=== PATIENT | female | born 1935 | race Caucasian/White ===

== ENCOUNTER 2017-04-15 15:47 | Emergency (ER) | payer MEDICARE, OTHER ==
[~2017-04-15] VITALS: Ht 152.4 cm; Wt 68.0 kg
[~2017-04-15 15:47] MED LIST: ACCUNEB0.63 MG/3 IH; ADVAIR 250-501 EACH INH; ADVIL200 MG PO; ALBUTEROL2.5 MG/3 M INH; ASPIRIN EC81 MG PO; BACLOFEN10 MG PO; CALCIUM 500 +1 EAC4 PO; CARVEDILOL3.125 MG PO; CELEXA10 MG PO; COLACE100 MG PO; DURAGESIC1 EACH TD; GLIPIZIDE XL5 MG PO; GLIPIZIDE5 MG PO; HYDRALAZINE HCL10 MG PO; HYDROCODON-ACE1 EA11 PO; KEFLEX500 MG PO; LANTUS SOL100 UNIT/1 SQ; LASIX20 MG PO; LEVOTHYROXINE75 MCG PO; LISINOPRIL20 MG PO; LISINOPRIL5 MG PO; MULTIVITAMINS1 EAC7 PO; NORCO 10-325 T1 EACH PO; OSTEO BI-FLEX1 EAC1 PO; RANITIDINE HCL150 MG PO; SIMVASTATIN20 MG PO; SPIRIVA18 MCG INH; ZOLOFT25 MG PO; ZOLOFT50 MG PO
--- NOTE | 2017-04-16 21:23 | EKG ---
[facility] [address] [facility] [place] [address] Signed Normal sinus rhythm Low voltage QRS Possible Anterolateral infarct , age undetermined Abnormal ECG No previous ECGs available Confirmed by MONICA GUERRERO MD ([id number]) on 04/16/2017 9:23:07 PM Electronically Signed By: MONICA GUERRERO MD 04/16/[id number] PATIENT NAME: RAMA RODRÍGUEZ DONNIE Electrocardiogram DATE OF : 33 PHYSICIAN: MONICA GUERRERO MD REPORT #: [id number] REPORT IS CONFIDENTIAL AND NOT TO BE RELEASED WITHOUT AUTHORIZATION
== END 2017-04-15 18:30 | disposition home or self-care (01) ==
LOC: ED 15:47
PROC: 0T9B70Z Drainage of Bladder with Drainage Device, Via Natural or Artificial Opening (ICD-10-PCS; principal; 2017-04-15)
DX: E86.0 Dehydration (principal); J44.9 Chronic obstructive pulmonary disease, unspecified; I10 Essential (primary) hypertension; E10.9 Type 1 diabetes mellitus without complications; F32.9 Major depressive disorder, single episode, unspecified; F17.200 Nicotine dependence, unspecified, uncomplicated; Z90.49 Acquired absence of other specified parts of digestive tract; Z90.89 Acquired absence of other organs; Z88.1 Allergy status to other antibiotic agents; Z88.8 Allergy status to other drugs, medicaments and biological substances; Z79.899 Other long term (current) drug therapy; Z79.82 Long term (current) use of aspirin
CPT/HCPCS: 51701; 71045; 80053; 81001; 84484; 85025; 87502; 93005; 93010; 96360; 99284; G0480; J7030

== ENCOUNTER 2019-02-19 19:51 | Inpatient (IN) | payer MEDICARE, OTHER ==
[~2019-02-19] VITALS: Ht 152.4 cm; Wt 63.2 kg
[~2019-02-19 19:51] MED LIST changes: +AMOX TR-K250 MG/5 M PO; +CEPHALEXIN500 M1 PO; +CITRATE OF MAG296 ML PO; +DULCOLAX10 MG PR; +FLEET ENEMA133 ML PR; +GABAPENTIN100 MG PO; +IPRAT-ALBUT 0.5-3 ML INH; +LANTUS100 UNITS/ SUB-Q; +LEVOTHYROXINE88 MCG PO; +LIDOCAINE-PRIL1 EACH TOP; +LIPITOR20 MG PO; +LISINOPRIL40 MG PO; +MAGNEBIND 4001 EACH PO; +METOPROLOL TART50 MG PO; +MILK OF MA400 MG/5 M PO; +NEURONTIN100 MG PO; +NIFEDIPINE ER30 MG PO; +NORCO 5-325 TA1 EACH PO; +NOVOLOG100 UNIT/2 SUB-Q; +PREDNISONE20 MG PO; +SERTRALINE HCL50 MG PO; +TESSALON PERLE100 MG PO
--- NOTE | 2019-02-20 01:40 | NUR ---
PATIENT ARRIVED TO THE FLOOR VIA STRETCHER. PATIENT WAS TRASFERRED FROM STRETCHER TO BED BY STAFF. PATIENTS ADMISSION COMPLETED. ASSESMENT COMPLETED. PATIENT IS CONFUSED AT TIMES. PATIENT HOWEVER ANSWERES QUESTIONS APPROPRIATELY AND IS SLOW TO RESPOND TO QUESTIONING. PATIENT IS ON RA. PATIENT DENIES ANY PAIN. PATIENT IS A FEEDER. PATIENT FED CHOCOLATE PUDDING AND TOOK SIPS OF WATER. PATIENT DENIES ANY NEEDS. PATIENTS DAUGHTER PRESENT DURING ADMISSION. NO FURTHER NEEDS NOTED. CALL LIGHT IN REACH.
--- NOTE | 2019-02-20 02:52 | NUR ---
PATIENT IS RESTING IN BED WITH EYES CLOSED, RR 17 . CALL LIGHT IN REACH.
--- NOTE | 2019-02-20 05:05 | NUR ---
PATIENT REPOSITIONED. PATIENT DENIES ANY PAIN. NEW IV STARTED. PATIENT DENIES ANY NEEDS. SIPS OF WATER PROVIDED. CALL LIGHT IN REACH.
--- NOTE | 2019-02-20 05:06 | NUR ---
PATIENT HAS RESTED WLL SINCE ARRIVING TO THE FLOOR. PATIENT IS ON A REGULAR DIET WITH MINCED/MOIST FOOD. PATIENT HAS TOLERATED DIET WELL AND NO NAUSEA NOTED. PATIENT REQUIRES ASSISTANCE WITH EATING AND DRINKING. PATIENT IS INCONTINENT AT BASELINE ATTEND IN PLACE. PATIENT IS BEDBOUND AT BASELINE. PATIENT HAS ALLEVYN IN COCYX PLACED BY ED. PATIENT TURNED Q2. PATIENT IS OREINTED TO SELF. PATIENT HAS IV INFUSING PER ORDER.
--- NOTE | 2019-02-20 05:30 | NUR ---
PATIENTS VITALS TAKEN AND RECORDED. INTAKE AND OUPUT RECORDED. PATIENTS ATTEND WAS SATURATED WITH URINE. PATIENTS ATTEND CHANGED AND PEGGY CARE COMPLETED. PATIENT REPOSITIONED. PATIENT DENIES ANY PAIN. DRINKS OF WATER PROVIDED. NO FURTHER NEEDS NOTED. CALL LIGHT IN REACH.
--- NOTE | 2019-02-20 07:27 | NUR ---
REPORT RECEIVED FROM UTILITY HELICOPTER REPAIRER RN. PT LYING IN BED AWAKE. LR AT 125 INFUSING. VISIBLE FROM NURSING STATION. CALL LIGHT IN REACH. CRISTINA MCCALL.
--- NOTE | 2019-02-20 08:45 | NUR ---
URINARY OREILLY PLACED PER MD ORDER. PT SOMULENT. WAKES TO PAINFUL STIMULI. BUT ABLE TO ANSWER YES/NO QUESTIONS. 75ML FOUL SMELLING URINE PRODUCED. UA SENT TO LAB. PT CLEANED UP AND REPOSITIONED.
--- NOTE | 2019-02-20 09:00 | NUR ---
DR LOZOYA NOTIFIED OF URINE OUTPUT OF 75ML WITH OREILLY INSERTION. VERBAL ORDER FOR LR BOLUS TO RUN AT 500ML/HR STARTED.
[2019-02-20] MEDS ORDERED: NITROFURANTOIN100 M1 PO (09:56)
[2019-02-20] MEDS ORDERED: LIPITOR80 MG PO (10:00)
[2019-02-20] MEDS ORDERED: NOVOLOG100 UNIT/2 SUB-Q (10:04)
[2019-02-20] MEDS ORDERED: ZESTRIL20 MG PO (10:08)
--- NOTE | 2019-02-20 11:04 | NUR ---
OCCUPATIONAL THERAPY AT BEDSIDE.
--- NOTE | 2019-02-20 11:41 | NUR ---
PATIENT SITTING UP IN BED. HIGH B/P AND LOW OUTPUT, RN NOTIFIED. CALL LIGHT IN REACH. NO FURTHER NEEDS AT THIS TIME.
--- NOTE | 2019-02-20 12:00 | NUR ---
DR LOZOYA NOTIFIED OF LOW URINE OUTPUT. NEW ORDERS RECIEVED.
[2019-02-20] MEDS ORDERED: ADVAIR 250-501 EACH INH (12:10)
--- NOTE | 2019-02-20 13:46 | NUR ---
patient sitting in chair. patient found to have a large amt emesis. patient cleaned up, zofran given, primary nurse alerted
--- NOTE | 2019-02-20 14:42 | NUR ---
PATIENT SITTING UP IN CHAIR. O2 LOW, RN NOTIFED. CALL LIGHT IN REACH. NO FURTHER NEEDS AT THIS TIME.
--- NOTE | 2019-02-20 14:50 | NUR ---
2L NC PLACED D/T O2 SATURATION OF 85% ON RA. DR LOZOYA NOTIFIED. CHEST XRAY ORDERED.
--- NOTE | 2019-02-20 15:04 | NUR ---
IMAGING IN ROOM FOR CHEST XRAY.
--- NOTE | 2019-02-20 15:31 | NUR ---
NUTRITION CONSULT RECEIVED. PATIENT HAS PRESSURE ULCER TO COCCYX AND HAS SEVERE DEMENTIA. LIVES WITH FAMILY. SHE NEEDS TO BE FED AND HAS HAD A POOR APPETITE. DIET WAS JUST CHANGED TO FULL LIQUID. NURSING REPORTS SPEECH THERAPY IS TO EVAL HER SWALLOWING. SHE CAME IN ON A MINCED & MOIST DIET, BUT DIDN'T TOLERATE THAT WELL TODAY. BMI IS 27.14. SHE CAN HAVE ENSURE ON A FULL LIQUID DIET. WILL CONTINUE TO MONITOR.
--- NOTE | 2019-02-20 15:43 | NUR ---
IV FLUIDS INCREASED TO 200ML/HR PER MD ORDER.
--- NOTE | 2019-02-20 15:52 | NUR ---
MED REC COMPLETE
--- NOTE | 2019-02-20 16:16 | NUR ---
In for CM initial assessment. Nurses are feeding patient. She is able to answer questions, but has difficulty and is unable to remember if she uses any DME. She states she lives with her daughter who does all her care. Would like to return home when discharged.
--- NOTE | 2019-02-20 17:40 | NUR ---
FLUIDS INCREASED TO 250ML/HR
--- NOTE | 2019-02-20 18:57 | NUR ---
PATIENT IN BED RESTING WITH EYES CLOSED. PATIENT ONLY TOOK A FEW SIPS OF ENSURE. B/P HIGH, RECHECKED, AND RN NOTIFIED. CALL LIGHT IN REACH. NO FURTHER NEEDS AT THIS TIME.
--- NOTE | 2019-02-20 19:02 | NUR ---
PT WITH ELEVATED BLOOD PRESSURE. DR LOZOYA NOTIFIED. NO NEW ORDERS.
--- NOTE | 2019-02-20 19:04 | EKG ---
[facility] [address] [facility] [place] [address] Signed Normal sinus rhythm Poor data quality Inferior infarct , age undetermined Anteroseptal infarct (cited on or before 15-APR-2017) Abnormal ECG When compared with ECG of 26-JAN-2018 19:23, Inferior infarct is now present Confirmed by SALLY LOZOYA DO ([id number]) on 02/20/2019 7:04:07 PM Electronically Signed By: SALLY LOZOYA DO 02/20/19 1904 PATIENT NAME: RAMA RODRÍGUEZ DONNIE Electrocardiogram DATE OF : 33 PHYSICIAN: SALLY LOZOYA DO REPORT #: [id number] REPORT IS CONFIDENTIAL AND NOT TO BE RELEASED WITHOUT AUTHORIZATION
--- NOTE | 2019-02-20 19:54 | NUR ---
REPORT RECEIVED FROM DAY SHIFT RN. PT LYING IN BED WITH EYES CLOSED. IVF INFUSING. AFIA PATENT. CALL LIGHT IN REACH.
--- NOTE | 2019-02-20 21:00 | NUR ---
PT NOTED TO HAVE ELEVATED BP. NEW ORDERS RECEIVED FROM DR. LOZOYA.
--- NOTE | 2019-02-20 21:50 | NUR ---
ASSESSMENT COMPLETE. PM MEDS GIVEN WITH PUDDING AND SIPS OF H20. PT HAVING DIFFICULTY SWALLOWING PILLS BUT APPEARS TO DO WELL WITH H2O AND PUDDING. NO CHOKING OR ASPIRATION NOTED. O2 2L/NC IN PLACE, SATS 99%. OREILLY PATENT. REPOSITIONED PT WITH PILLOWS. CALL LIGHT WITHIN REACH.
--- NOTE | 2019-02-20 23:05 | NUR ---
NEW BAG OF LR NOW INFUSING, PT IS RESTING WITH EYES CLOSED. RR IS EVEN AND NONLABORED. CALL LIGHT IS CLOSE.
--- NOTE | 2019-02-20 23:23 | NUR ---
PATIENT IS RESTING IN BED. PATIENTS BP RECHECKED. PATIENT IS RESTING PEACFULLY IN BED RR 17. PATIENT IS ON 1L VIA NC. PATIENT DENIES ANY SOB OR PAIN. NO NEEDS NOTED. CALL LIGHT IN REACH.
--- NOTE | 2019-02-21 02:02 | NUR ---
SPOT CHECK SPO2 99% ON 0.5 L/NC. RR EVEN AND UNLABORED.
--- NOTE | 2019-02-21 05:26 | NUR ---
PT IN BED, RESTING WITH EYES CLOSED. REPOSITIONED WITH PILLOWS. IVF INFUSING. VS AND I/O'S COMPLETE. OREILLY PATENT. SIPS OF WATER GIVEN, NO APPARENT ASPIRATION. CALL LIGHT WITHIN REACH.
--- NOTE | 2019-02-21 05:31 | NUR ---
PT RESTED WELL. MOSTLY NON-VERBAL. ASPIRATION PRECAUTIONS. FULL LIQ DIET. O2 2L/NC. REPOSITION Q2. OREILLY. IVF AND IV ABX. BS CHECK AND SS INSULIN. ELEVATED BP, PRN MEDS WITH PARAMETERS ORDERED.
--- NOTE | 2019-02-21 07:44 | NUR ---
PT RESTING SUPINE IN BED EYES CLOSED AND RESPIRATIONS EVEN AND UNLABORED. PT APPEARS TO BE SLEEPING COMFORTABLY. PT DROWSY BUT AROUSES TO VOICE. CALL LIGHT AND H2O IN REACH. PT ASSESSMENT COMPLETED, AM MEDS ADMINISTERED.
--- NOTE | 2019-02-21 10:05 | NUR ---
PT RESTING SUPINE IN BED WITH LLE ELEVATED ON PILLOWS, [address] CALL LIGHT AND H2O IN REACH. NO NEEDS OR CONCERNS VOICED.
--- NOTE | 2019-02-21 13:24 | NUR ---
Pt. resting in bed sleeping. Not awakened. Requested staff notify me when pt's daughter returns.
--- NOTE | 2019-02-21 14:41 | NUR ---
PT TRANSFERED TO BED WITH 2PERSON HEAVY ASSIST. PT STATES SHE IS COMFORTABLE RESTING IN SEMIFOWELRS POSITION IN BED. CALL LIGHT AND H2O IN REACH. PT DENIES NEEDS OR CONCERNS.
--- NOTE | 2019-02-21 16:00 | NUR ---
BP ELEVATED SO PRN HYDRALAZINE WAS ADMINISTERED ORDERED. NOTIFIED.
--- NOTE | 2019-02-21 19:05 | NUR ---
ROUNDED CHARGE. PATIENT IS RESTING IN BED. PATIENT IS SMILING. PATIENT DENIES ANY COMMENTS, QUESTIONS OR CONCERNS. DAUGHTER IS PRESENT IN THE ROOM. DAUGHTER DENIES ANY COMMENTS, QUESTIONS OR CONCERNS. CALL LIGHT IN REACH.
--- NOTE | 2019-02-21 19:34 | NUR ---
IN ROOM FOR REPORT, PT IS AWAKE IN BED. SHE DENIES NEEDS AT THIS TIME. CALL LIGHT IS WITHIN REACH.
--- NOTE | 2019-02-21 22:00 | NUR ---
IN ROOM TO ADMINISTER MEDICATIONS AND ASSESS PT. SHE IS PLEASANTLY CONFUSED EVEN WITH NECK PAIN. SHE WAS UNCOMFORTABLE WHEN REPOSITIONED IN BED. ADMINISTERED OXYCODONE. PT DENIES NEED AND CALL LIGHT IS WITHIN REACH. IV IS INFUSING FINE.
--- NOTE | 2019-02-21 23:20 | NUR ---
PT IS RESTING IN BED WITH EYES CLOSED, RR IS EVEN AND NONLABORED. CALL LIGHT IS CLOSE AND IV IS INFUSING FINE.
--- NOTE | 2019-02-22 01:47 | NUR ---
PT IS RESTING WITH EYES CLOSED, RR IS EVEN AND NONLABORED. CALL LIGHT IS CLOSE AND IV IS INFUSING FINE.
--- NOTE | 2019-02-22 01:49 | NUR ---
REPOSITIONED PT IN BED WITH HELP FROM KATIA WILKINS, SHE DENIES NEEDS AT THIS TIME. CALL LIGHT IS CLOSE.
--- NOTE | 2019-02-22 03:13 | NUR ---
PT IS RESTING WITH EYES CLOSED, RR IS EVEN AND NONLABORED. CALL LIGHT IS CLOSE AND IV IS INFUSING FINE.
--- NOTE | 2019-02-22 04:08 | NUR ---
PT IS AWAKE IN BED, IN ROOM TO HANG NEW BAG OF IV FLUID. PT DENIES NEEDS AT THIS TIME. CALL LIGHT IS CLOSE.
--- NOTE | 2019-02-22 05:57 | NUR ---
IN ROOM TO ADMINISTER THYROID MED. REPOSITIONED PT AND SHE DENIES FURTHER NEEDS. CALL LIGHT IS CLOSE.
--- NOTE | 2019-02-22 09:20 | NUR ---
PT IS ALERT THIS MORNING, SMILING AND INTERACTIVE, ATE WELL FOR BREAKFAST AND TAKING FLUIDS MUCH BETTER, SPOKE WITH DR LOZOYA AND WILL DC IV FLUIDS AND ENCOURAGE PO INTAKE. OREILLY PATENT WITH YELLOW URINE, REPOSITIONED FOR COMFORT, KOMAL CONNOR CDI TO COCCYX.
--- NOTE | 2019-02-22 10:11 | NUR ---
Got lathane sat up in the feeding position, patient in a very talkative mood, at 50% of her breakfast , face wased and fresh water given, repodition Patient. patient is resting call light in reach.
--- NOTE | 2019-02-22 11:00 | NUR ---
TWO PERSON ASSIST UP TO RECLINER, PT SMILING, TRIES TO FOLLOW INSTRUCTION, ENC PT TO BE AWAKE DURING DAY.
--- NOTE | 2019-02-22 13:56 | NUR ---
CLAUDETTE LEVIN REQUESTED I LET PT SLEEP FOR THE MOMENT. WILL CHECK BACK LATER
--- NOTE | 2019-02-22 17:47 | NUR ---
IVF RESTARTED AFTER TALKING WITH DR LOZOYA, URINE OUTPUT MINIMUM, TAKING PO FLUIDS OFFERED BUT COUGHING AND CONGESTION INCREASES, USING ASPIRATION PRECAUTION AND THICKENED LIQUIDS.
--- NOTE | 2019-02-22 18:50 | NUR ---
PT WITH INCREASED RESP AND WORK OF BREATHING, RESP-40, O2 INC. TO 4L/NC, REQUESTED RT TO COME TO ROOM FOR TREATMENT, CALL PLACED TO DR LOZOYA AND RECIEVED ORDER FOR CHEST XRAY.
--- NOTE | 2019-02-22 19:04 | NUR ---
RECEIVED REPORT FROM CLAUDETTE LEVIN. pt HAS LABORED BREATHING, VERBAL ORDER FROM MD TO GIVE 0.5MG OF MORPHINE. GIVEN (SEE MAR). REDRESSED IV WILL MONITOR SITE. VISITOR AT BEDSIDE. CALL LIGHT WITHIN REACH. CURTAIN OPEN TO THE NURSES STATION. ON HIGH FLOW O2.
--- NOTE | 2019-02-22 19:54 | NUR ---
MD IN ROOM. WILL TITRATE O2 DOWN TOLERATED. NO FURTHER ORDERS AT THIS TIME.
--- NOTE | 2019-02-22 23:57 | NUR ---
DAUGHTER REQUESTED BREATHING TREATMENT FOR pt. THIS RN IN TO ASSESS pt. pt HAS LABORED BREATHING USING ACCESSORY MUSCLES, RATE = 28. DISCUSSED WITH RT, PRN MORPHINE GIVEN FOR SOB (SEE MAR). pt's DAUGHTER INSISTED THAT pt HAVE A BREATHING TREATMENT, RT INFORMED.
--- NOTE | 2019-02-23 00:30 | NUR ---
DAUGHTER INFORMED THIS RN THAT pt HAD "FINISHED A SPRITE" EDUCATED DAUGHTER ON ASPIRATIONS PRECAUTIONS AND THAT pt SHOULD ONLY HAVE A SIP FOR COMFORT. DAUGHTER STATED "THE DOCTOR SAID I COULD" RESTATED THAT pt SHOULD ONLY HAVE A FEW SIPS FOR COMFORT.
--- NOTE | 2019-02-23 01:41 | NUR ---
ROUNDED ON pt. RESTING IN BED. WORK OF BREATHING DECREASED FROM LAST ASSESSMENT. MORE AIR MOVEMENT IN UPPER LOBES. DAUGHTER AT BEDSIDE. CALL LIGHT WITHIN REACH.
--- NOTE | 2019-02-23 03:50 | NUR ---
IV SITE LEAKING. NEW IV STARTED, pt TOLERATED WELL. ASSESSMENT DONE. pt AWAKE, SLOW TO RESPOND. EXPIRATORY WHEEZE HEARD IN BILAT UPPER LOBES. DAUGHTER AT BEDSIDE. CALL LIGHT WITHIN REACH.
--- NOTE | 2019-02-23 05:06 | NUR ---
pt RESTED ON AND OFF DURING SHIFT. DAUGHTER AT BEDSIDE ALL SHIFT. ACCU CHECK WITH SS INSULIN. IVF INFUSING, IV ABX. OREILLY. HIGH ASPIRATION RISK, pt NPO WITH SIPS FOR COMFORT, DAUGHTER AWARE OF RESTRICTION, GAVE pt FULL CAN OF SODA. pt MOSTLY NON VERBAL. DOES NOT USE CALL LIGHT.
--- NOTE | 2019-02-23 06:47 | NUR ---
NEW IV STARTED BY CLAUDETTE SALMON. NEW BAG OF IVF INFUSING. pt HAS LABORED BREATHING, O2 VIA NC. O2 SAT 99%. DAUGHTER AT BEDSIDE.
--- NOTE | 2019-02-23 07:43 | NUR ---
0710: REPORT RECIEVED FROM TANYA WILKINS. PT SLEEPING, SAT 100% WITH A RR OF 30 AND PT SLEEPING. CALL ROSA WITHIN REACH AND A FAMILY MEMBER IS SLEEPING IN THE ROOM.
--- NOTE | 2019-02-23 08:42 | NUR ---
PT VERY DROWSY AT THIS TIME AND IS UNABLE TO SAFELY TAKE ANY ORAL MEDICATIONS. HER DAUGHTER WHO IS PRESENT WAS INSTRUCTED TO NOT GIVE ANYTHING TO THE PT ORALY AND SHE STATES "WHO'S GOING TO DO IT WHEN SHE GOES HOME". ASPIRATION PRECAUTIONS DISCUSSED AND THE IMPORTANCE OF WHY SHE SHOULD NOT HAVE ANYTHING ORALLY AND SHE DID NOT RESPOND.
--- NOTE | 2019-02-23 08:53 | NUR ---
PT VERY DROWSY AND CAN NOT STAY AWAKE OR FOLLOW ANY COMMANDS. PT NOT GIVEN ANY PO MEDICATIONS DUE TO THIS. DR LOZOYA NOTIFIED.
--- NOTE | 2019-02-23 08:59 | NUR ---
PATIENT SLEEPING. DAUGHTER AND GRANDDAUGHTER IN ROOM. VITAL SIGNS AND I&O DONE. HIGH SYSTOLIC BLOOD PRESSURE. RN NOTIFIED. CALL LIGHT WITHIN REACH. NO OTHER NEEDS AT THIS TIME
--- NOTE | 2019-02-23 10:00 | NUR ---
PT CONTINUES SLEEPING, SAT 100% ON 2L AND RR OF 24. O2 DECREASED TO 1L.
--- NOTE | 2019-02-23 11:07 | NUR ---
PT REMAINS MINIMALLY RESPONSIVE. CBG RECHECKED AND IS NOW 85. HER URINE OUTPUT REMAINS LOW AND DR LOZOYA WAS NOTIIFED.
--- NOTE | 2019-02-23 11:22 | NUR ---
SAT 96% ON ROOM AIR.
--- NOTE | 2019-02-23 11:26 | NUR ---
PT REPOSITIONED IN HER BED AND SHE DID AWAKE AND STATES "NO" WHEN ASKED IF SHE IS HAVING ANY PAIN OR PROBLEMS. PT QUICKLY BACK TO SLEEP.
--- NOTE | 2019-02-23 11:45 | NUR ---
PT SLEEPING, SAT 96% ON ROOM AIR.
--- NOTE | 2019-02-23 12:21 | NUR ---
RR 24, sat decreased to 85%. Pt states she is having some sob. Lung sounds decreased with exp wheezes noted in the left upper lobe. O2 replaced at 2l and sat increased to 93%. Rt called for a breathing treatment.
--- NOTE | 2019-02-23 13:30 | NUR ---
PATIENT RESTING IN BED. FAMILY IN ROOM. VITAL SIGNS AND I&O DONE. CALL LIGHT WITHIN REACH. NO OTHER NEEDS AT THIS TIME
--- NOTE | 2019-02-23 13:57 | NUR ---
DR LOZOYA AWARE OF THE PT'S URINE OUTPUT. PT WILL NOW AWAKE AND ANSWER QUESTIONS WITH ONE WORD ANSWERS AND SHE VERY QUICKLY FALLS BACK TO SLEEP. SAT IS NOW 98% ON 2L WHILE SLEEPING.
--- NOTE | 2019-02-23 14:43 | NUR ---
PT NOW ABLE TO STAY AWAKE AT THIS TIME. SHE WAS ASSISTED WITH 2PA UP TO THE CHAIR. SHE IS NOW SITTING UP WITH HER LEGS ELEVATED WITH FAMILY PRESENT IN THE ROOM. SAT 98% ON 2L. PT TOLERATED THE MOVE WELL.
--- NOTE | 2019-02-23 15:44 | NUR ---
1525: Pt's diet ordered changed. As she is sitting up in her chair she was slowly feed some ice cream and tolerated it well without any aspiration.
--- NOTE | 2019-02-23 16:42 | NUR ---
SAT 100%, O2 TURNED OFF. SAT DECREASED TO 93% ON ROOM AIR. THE PT APPEARS COMFORTABLE AT THIS TIME AND DENIES ANY PROBLEMS. PT VISITING WITH HER FAMILY AT THIS TIME.
--- NOTE | 2019-02-23 17:14 | NUR ---
PATIENT SITTING UP IN CHAIR. VITAL SIGNS AND I&O DONE. LINENS CHANGED. CALL LIGHT WITHIN REACH. NO OTHER NEEDS AT THIS TIME
--- NOTE | 2019-02-23 17:40 | NUR ---
PT RESTING IN HER CHAIR AND SHE STATES "YES" THAT SHE IS COMFORTABLE. SAT ON ROOM AIR IS 92%.
--- NOTE | 2019-02-23 18:55 | NUR ---
RECEIVED REPORT FROM CLAUDETTE KLEIN. pt SITTING IN CHAIR. NO REQUESTS AT THIS TIME. WHITEBOARD UPDATED. CALL LIGHT WITHIN REACH. CURTAIN OPEN TO THE NURSES STATION.
--- NOTE | 2019-02-23 20:20 | NUR ---
ASSESSMENT DONE. pt SITTING IN CHAIR, DENIES PAIN. STOOD AND PIVOTED WITH 2PA TO MOVE FROM CHAIR TO BED. MEDICATIONS GIVEN (SEE MAR). GRANDDAUGHTER AT BEDSIDE. RT IN ROOM TO DO TREATMENT.
--- NOTE | 2019-02-23 21:34 | NUR ---
BACK FACER ROUNDING NOTE. PT RESTING IN BED WITH FAMILY LAYING ON COUCH. QUESTIONS AND CONCERNS DENIED AT THIS TIME. CALL LIGHT IN REACH. WHITE BOARD UPDATED.
--- NOTE | 2019-02-23 21:35 | NUR ---
BILLBOARD ERECTOR HELPER INFORMED THIS RN OF HIGH BLOOD PRESSURE. THIS RN RECHECKED. GAVE PRN PER ORDERS. WILL CONTINUE TO MONITOR. pt REPORTS "I FEEL JUST FINE THANK YOU" NO REQUESTS AT THIS TIME. CALL LIGHT WITHIN REACH. GRANDDAUGHTER AT BEDSIDE.
--- NOTE | 2019-02-23 23:39 | NUR ---
pt RESTING IN BED. REPOSITIONED PATIENT TO BACK, TOOK BLOOD PRESSURE, IMPROVED. REPOSITIONED pt TO RIGHT SIDE. pt REPORTED SHE FELT "FINE" NO REQUESTS AT THIS TIME. CALL LIGHT WITHIN REACH. GRANDDAUGHTER AT BEDSIDE.
--- NOTE | 2019-02-24 02:16 | NUR ---
GRANDDAUGHTER INFORMED THIS RN THAT pt WAS "BREATHING LOUD" RT IN TO ASSESS AND ADMINISTER BREATHING TREATMENT.
--- NOTE | 2019-02-24 02:57 | NUR ---
MD NOTIFIED OF CHANGE IN pt STATUS. NEW ORDERS ENTERED. MEDICATION EXPLAINED AND ADMINISTERED. WILL CONTINUE TO MONITOR.
--- NOTE | 2019-02-24 03:08 | NUR ---
ROUNDED ON pt. RESPIRATION RATE 24. USING ACCESSORY MUSCLES. WILL CONTINUE TO MONITOR.
--- NOTE | 2019-02-24 03:31 | NUR ---
ROUNDED ON pt. RESTING WITH EYES CLOSED, RESPIRATIONS REGULAR, USING ACCESSORY MUSCLES. URINE OUTPUT INCREASED. LUNG SOUNDS UNCHANGED. RESPIRATORY RATE 27.
--- NOTE | 2019-02-24 04:31 | NUR ---
ROUNDED ON pt. RESTING WITH EYES CLOSED, RESPIRATIONS REGULAR, LABORED, ACCESSORY MUSCLE USE, RATE = 26. GRANDDAUGHTER AT BEDSIDE.
--- NOTE | 2019-02-24 06:23 | NUR ---
NOTIFIED MD OF pt CONDITION. NO NEW ORDERS AT THIS TIME.
--- NOTE | 2019-02-24 06:52 | NUR ---
pt RESTING ON LEFT SIDE. BREATHING QUIETER THAN PRIOR, USING ACCESSORY MUSCLES, RESPRIATIONS REGULAR. RATE 26. GRANDDAUGHTER AT BEDSIDE. DID NOT GIVE MED pt IS HIGH ASPIRATION RISK AND IS USING ACCESSORY MUSCLES TO BREATH AND DROWSY AT THIS TIME.
--- NOTE | 2019-02-24 07:22 | NUR ---
0707: REPORT RECIEVED FROM TANYA WILKINS. PT SLEEPING AT THIS TIME WITH A FAMILY MEMBER PRESENT IN THE ROOM. CALL ROSA WITHIN REACH.
--- NOTE | 2019-02-24 08:09 | NUR ---
PATIENT RESTING IN BED, EYES CLOSED, RESPIRATIONS EVEN AND UNLABORED. FAMILY IN ROOM. PATIENT STIRS SLIGHTLY WHEN CHECKING BLOODSUGAR BUT OTHERWISE CONTINUED TO REST. AM CARE SET UP AT BEDSIDE AND IN BATHROOM FOR PATIENT TO USE AT A LATER TIME. CALL LIGHT IN REACH. NO OTHER NEEDS AT THIS TIME.
--- NOTE | 2019-02-24 09:09 | NUR ---
Pt very drowsy and will open her eyes but quickly closes them again and she will not follow commands or answer questions. PO medications not given due to her aspiration risk at this time. Sat remains in the 90's on 1l via nc. Vang producing a good amount of light yellow urine with some sediment noted. Maria L's left posterior forearm is red in color with no increase heat noted, will notify her MD of this.
--- NOTE | 2019-02-24 10:14 | NUR ---
PATIENT RESTING IN BED, PATIENT AWAKES BREIFLY FOR VITALS BUT OTHERWISE CLOSES HER EYES AND BEGINS TO SNORE. PATIENT STATED SHE IS NOT HUNGRY AND DOESNT WANT TO EAT OR DRINK ANYTHING AT THIS TIME. RN NOTIFIED. CALL LIGHT IN REACH. NO OTHER NEEDS AT THIS TIME.
--- NOTE | 2019-02-24 10:46 | NUR ---
PT NOW AWAKE AND IS ANSWERING QUESTIONS AND HAS BEEN ABLE TO STAY AWAKE. PT GIVEN HER MEDICATIONS THAT WERE ORDERED FOR THIS AM AFTER BEING CRUSHED AND PUT IN APPLE SAUCE. PT NOW BEING FEED BREAKFAST BY THE CNAS. PT DENIES ANY PAIN OR PROBLEMS.
--- NOTE | 2019-02-24 11:18 | NUR ---
Dr Hendricks notified of the noted redness of the left fa.
--- NOTE | 2019-02-24 12:57 | NUR ---
PT RESTING IN HER CHAIR AND APPEARS COMFORTABLE. PT'S GRANDAUGHTER PRESENT. CALL ROSA IN REACH.
--- NOTE | 2019-02-24 13:55 | NUR ---
PT ASSISTED BACK TO BED SHE DROWSY AT THIS TIME. THE PT WAS A HEAVY 2 PERSON ASSIST. SHE TOLERATED THE MOVE WELL BUT WAS LITTLE TO NO HELP WITH THE MOVE.
--- NOTE | 2019-02-24 14:10 | NUR ---
PATIENT RESTING IN BED, CALL LIGHT IN REACH, FAMILY IN ROOM. PATIENT GRIMACES AND MOANS OCCASIONALLY IF IN PAIN. RN AT BEDSIDE.
--- NOTE | 2019-02-24 14:16 | NUR ---
Pt's [facility] requested a breathing treatment for the pt. RR is 24, hob elevated some more and RT called for the requested treatment. Pt asked how she is doing and she states not well and is unable to state what is wrong. Pt right back to sleep. PO medications not given due to the pt being so drowsy.
--- NOTE | 2019-02-24 14:32 | NUR ---
Pt sleeping at this time.
--- NOTE | 2019-02-24 16:14 | NUR ---
THE PT'S DAUGHTER (MISSAEL) IS PRESENT IN THE ROOM WHEN I STEPPED IN TO CHECK ON THE PT. MISSAEL STATES SHE JUST GAVE THE PT ABOUT 150 ML OF SODA. YESTERDAY MISSAEL WAS REQUESTED TO LEAVE ALL FEEDING AND DRINKING THE PT DOES TO BE HELPED BY STAFF AND THAT ALL FLUIDS NEED TO BE THICKENED WHICH IT WAS NOT. THE PT APPEARS COMFORTABLE AND DENIES ANY SOB OR PAIN AT THIS TIME.
--- NOTE | 2019-02-24 16:30 | NUR ---
aMria L states she is now having some neck pain which she is unable to rate. Pt medicated as ordered, see emar.
--- NOTE | 2019-02-24 18:07 | NUR ---
PATIENT HAS BEEN SLEEPY AND UNINTERESTED IN FOOD FOR MOST OF THE DAY. AT DINNER, PATIENT WAS AWAKE AND STATING SHE WAS HUNGRY. PATIENT ATE HALF A THICKENED ENSURE AND 90% OF HER DINNER AND IS ALERT AND SITTING UP WATCHING TV. PATIENT STATES SHE FEELS BETTER THIS EVENING THAN SHE DID THE REST OF THE DAY. PATIENT REFUSED ORAL CARE. CALL LIGHT IN REACH. NO OTHER NEEDS AT THIS TIME.
--- NOTE | 2019-02-24 18:29 | NUR ---
PT SLEEPING AT THIS TIME.
--- NOTE | 2019-02-24 19:02 | NUR ---
RECEIVED REPORT FROM CLAUDETTE KLEIN. pt RESTING IN BED. REPOSITIONED. NO REQUESTS AT THIS TIME. WHITEBOARD UPDATED. ALLERobotsAliveYN IN PLACE ON [address]. CALL LIGHT WITHIN REACH. CURTAIN OPEN TO NURSES STATION.
--- NOTE | 2019-02-24 22:10 | NUR ---
pt SITTING UP ON SIDE OF BED WITH GRANDDAUGHTER AND DAUGHTER. pt ALERT AND AWAKE ANSWERED SIMPLE QUESTIONS. ABLE TO SWALLOW CRUSHED MEDS IN APPLESAUCE WITHOUT ISSUE. ASSESSMENT DONE. ASSISTED pt TO LAY DOWN, USING ACCESSORY MUSCLES AFTER MOVING TO BED. WILL CONTINUE TO MONITOR. GRANDDAUGHTER AT BEDSIDE. IV ABX INFUSING. CALL LIGHT WITHIN REACH.
--- NOTE | 2019-02-24 22:10 | NUR ---
[employer] ROUNDING NOTE. PRIMARY RN IN ROOM. PT ASSISTED TO STAND, BEDSHEETS STRAIGHTENED. PT ASSISTED TO LAY DOWN, REPOSITINED IN BED AND PROPPED WITH PILLOWS. PRIMARY RN REMAINS IN ROOM. CALL LIGHT IN REACH. FAMILY AT BEDSIDE. WHITE BOARD UPDATED.
--- NOTE | 2019-02-24 22:50 | NUR ---
IV PUMP BEEPING, INFUSION COMPLETE. NO REQUESTS AT THIS TIME. GRANDDAUGHTER AT BEDSIDE. CALL LIGHT WITHIN REACH. IV SL.
--- NOTE | 2019-02-25 01:24 | NUR ---
ROUNDED ON pt. RESPIRATION RATE 26. USING ACCESSORY MUSCLES, WHEEZING IN UPPER LOBES. RT INFORMED, WILL BE DOWN TO ASSESS.
--- NOTE | 2019-02-25 02:15 | NUR ---
REASSESSED pt. RESP RATE 28. O2 100% ON 2L NC. PULSE 80. RT CALLED.
--- NOTE | 2019-02-25 02:57 | NUR ---
REASSESSED pt. RESTING WITH EYES CLOSED, RESPIRATIONS REGULAR, ACCESSORY MUSCLE USE DECREASED FROM PRIOR ASSESSMENT. WHEEZING DECREASED FROM PRIOR ASSESSMENT. CALL LIGHT WITHIN REACH. GRANDDAUGHTER AT BEDSIDE.
--- NOTE | 2019-02-25 05:15 | NUR ---
ROUNDED ON pt. RESTING WITH EYES CLOSED, USING ACCESSORY MUSCLES TO BREATH. RATE = 28. GRANDDAUGHTER AT BEDSIDE.
--- NOTE | 2019-02-25 06:22 | NUR ---
VITALS AND I&O RECORDED. pt REPOSITIONED. pt STIRRED BUT DID NOT WAKE DURING MOVEMENT. RESPIRATION RATE OF 20, SOME ACCESSORY MUSCLE USE. O2 SAT 99%. GRANDDAUGHTER AT BEDSIDE.
--- NOTE | 2019-02-25 06:24 | NUR ---
pt RESTED ON AND OFF DURING SHIFT. AWAKE AND ALERT, SITTING ON SIDE OF BED AT BEGINNING OF SHIFT. pt DID HAVE INCREASED RESPIRATIONS AND WORK OF BREATHING, PRN NEB TREATMENT X1. MARKED IMPROVEMENT POST TREATMENT. SOMNOLENT DURING LAST SET OF VITALS. UNSAFE TO SWALLOW, AM MED HELD. DOES NOT USE CALL LIGHT.
--- NOTE | 2019-02-25 07:22 | NUR ---
0658: REPORT RECIEVED FROM TANYA WILKINS. PT SLEEPING AT THIS TIME ON 2 L OF O2 AND HER CALL ROSA WITHIN REACH.
--- NOTE | 2019-02-25 07:46 | NUR ---
PATIENT RESTING IN BED, EYES CLOSED, LIGHTS OFF. FAMILY IN ROOM. PATIENT CALL LIGHT IN REACH, AM CARE SET UP AT BEDSIDE FOR LATER USE. NO OTHER NEEDS AT THIS TIME.
--- NOTE | 2019-02-25 09:22 | NUR ---
PT SITTING UP HIGH IN HER BED AND IS BEING FEED BREAKFAST BY THE CERTIFIED VETERINARY TECHNICIAN. CODY DENIES ANY PAIN OR PROBLEMS. HER LUNGS ARE NOTED TO HAVE EXP WHEEZES AND A RR OF 26, SAT 93% ON 2L. RT CALLED FOR A BREATHING TREATMENT. FAMILY REMAINS AT THE BEDSIDE AND CALL ROSA WITHIN REACH.
--- NOTE | 2019-02-25 09:37 | NUR ---
PATIENT SITTING UP IN BED, RESPIRATORY THERAPY AT BEDSIDE. PATIENT TOLERATED BREAKFAST WELL, SHE ATE 50% AND HALF OF A THICKENED ENSURE. PATIENT CONTINUES TO SIP ON ENSURE. CALL LIGHT IN REACH. PATIENT VISIBLE FROM NURSES STATION.
--- NOTE | 2019-02-25 10:47 | NUR ---
Pt had a ring on her right hand ring finger which appears tight. The ring was removed using waxed dental floss and handed to the [facility] (Carol) who is present for safe keeping. Pt denies any problems at this time and was repositioned in her bed. RR is now 20.
--- NOTE | 2019-02-25 13:20 | NUR ---
PT SLEEPING, WILL AWAKE TO VOICE AND SHE DENIES ANY PAIN OR SOB AND FALLS RIGHT BACK TO SLEEP. LUNG SOUNDS REMAIN DECREASED AND HER SAT IS 91% WHILE SLEEPING ON 2L VIA NC. URINE OUTPUT 100 FOR THE LAST 6 HOURS, MD WILL BE NOTIFIED. CALL ROSA WITHIN REACH.
--- NOTE | 2019-02-25 13:37 | NUR ---
Pt's daughter (Jaren) arrived to the pt's room. She was updated to the status of the pt and made aware that Carol is holding the pt's ring for safe keeping. Pt continues sleeping at this time.
--- NOTE | 2019-02-25 13:48 | NUR ---
PT REPOSITIONED AT THIS TIME.
--- NOTE | 2019-02-25 15:22 | NUR ---
Pt sleeping at this time, her grandaughter is present in the room and denies any new problems.
--- NOTE | 2019-02-25 15:45 | NUR ---
Pt helped back to bed following his shower. A chair that sits higher was placed in his room and the other chair removed from the room. Pt denies any new problems.
--- NOTE | 2019-02-25 16:23 | NUR ---
PT AWOKE AND STARTED COUGHING, LUNGS COARSE WITH EXP WHEEZES THROUGHTOUT, SAT 90% ON 2L AND RR 26. HOB REMAINS ELEVATED AND RT CALLED AND BREATHING TREATMENT REQUESTED.
--- NOTE | 2019-02-25 16:25 | NUR ---
PT RECIEVING A BREATHING TREATMENT AT THIS TIME.
--- NOTE | 2019-02-25 16:40 | NUR ---
RR NOW 20, SAT 91%. LUNG SOUNDS STILL NOTED TO HAVE EXP WHEEZES BUT DO NOT SOUND TIGHT THEY DID PRIOR TO THE BREATHING TX.
--- NOTE | 2019-02-25 19:05 | NUR ---
BEDSIDE REPORT RECEIVED FROM CLAUDETTE KLEIN. pt RESTING IN BED. AWAKENS TO GRANDDAUGHTER VOICE. NO C/O PAIN AT THIS TIME. 2L OXYGEN BY NC IN PLACE. OREILLY DRAINING YELLOW URINE.
--- NOTE | 2019-02-25 20:50 | NUR ---
FIELD SCOUT ROUNDING NOTE. PT RESTING IN BED WITH EYES CLOSED. PT'S GRANDDAUGHTER IS PRESENT ON COUCH, USING HER COMPUTER. GRANDDAUGHTER REPORTS THAT PT IS A BIT MORE SHAKEY THAN NORMAL BUT THAT PT IS ALWAYS SHAKEY SOMEWHAT. PT WITH TREMORS TO L HAND SPECIFICALLY. NO APPARENT DISTRESS NOTED. PT WAKES BRIEFLY WHEN THIS VENDOR REPRESENTATIVES TOUCHES HER HANDS. AGREES THAT SHE IS COMFORTABLE. PT'S GRANDDAUGHTER DENIES FURTHER NEEDS AT THIS TIME. CALL LIGHT IN REACH. ROOM IN VIEW OF RN STATION. WHITE BOARD UPDATED.
--- NOTE | 2019-02-25 22:00 | NUR ---
V/S AND I&O TAKEN AND CHARTED. OREILLY CARE DONE. CHANGED ATTENDS AND DRAW SHEETS. PATIENT REPOSITIONED. GRANDDAUGHTER IN ROOM.
--- NOTE | 2019-02-25 22:40 | NUR ---
pt ASSESSMENT COMPLETE. WHEEZES THROUGHOUT ALL LUNG LOBES. pt ABLE TO STAND AT SIDE OF BED WITH 2PA, FWW. CHUX AND DRAW SHEET CHANGED. REPOSITIONED IN BED. pt C/O PAIN IN BACK, UNABLE TO RATE PAIN. PRN MEDICATION ADMINISTERED. OREILLY CARE COMPLETE. SIPS OF THICKENED WATER PROVIDED. SCHEDULED MEDICATIONS CRUSHED IN PUDDING. pt TOLERATED WELL. RT HECTOR IN ROOM FOR PRN BREATHING TREATMENT. GRANDDAUGHTER IN ROOM.
--- NOTE | 2019-02-26 00:44 | NUR ---
CHECKED ON pt RESTING IN BED WITH EYES CLOSED. HOB ELEVATED. 2L OXYGEN BY NC IN PLACE. VISIBLE CHEST RISE EQUAL BILATERALLY, SNORING. LIGHTS OFF IN ROOM. GRAND DAUGHTER ON COUCH.
--- NOTE | 2019-02-26 03:11 | NUR ---
pt AWAKE LYING IN BED. ASSESSMENT COMPLETE. LUNG SOUNDS CLEAR, RR 24. REPOSITIONED IN BED WITH 2 NURSING STAFF ASSIST. pt DENIES ANY PAIN. DRINKS OF THICKENED WATER PROVIDED. OREILLY DRAINING YELLOW URINE. FAMILY IN ROOM. HOB ELEVATED.
--- NOTE | 2019-02-26 04:31 | NUR ---
GRANDDAUGHTER TO NURSES STATION. C/O pt SOB. pt TACHYPNIC, SLOUCHING IN BED, REPOSITIONED WITH 2 NURSING STAFF ASSIST. WHEEZES WILLIAM. CLEAR THROUGHOUT LUNGS. 2L OXYGEN BY NC IN PLACE. RT HECTOR IN ROOM FOR PRN BREATHING TREATMENT.
--- NOTE | 2019-02-26 05:48 | NUR ---
pt CONFUSED, ORIENTED TO SELF. REORIENTATION PROVIDED. pt IN BED MOST OF SHIFT, ABLE TO STAND AT BEDSIDE WITH 2PA. OREILLY CARE, DRAINING YELLOW URINE, OLIGURIA. PRN TYLENOL X 1 FOR PAIN CONTROL. MEDICATIONS CRUSHED IN PUDDING. ASPIRATION PRECAUTIONS. PRN AND SCHEDULED NEBS. 2L OXYGEN BY NC.
--- NOTE | 2019-02-26 07:28 | NUR ---
REPORT RECIEVED FROM CLAUDETTE STALEY. PT JUST GETTING SETTLED AFTER HAVING A SMEAR OF BM. WILL CONTINUE MIRLAX AND SENNA.
--- NOTE | 2019-02-26 09:13 | NUR ---
CRUSHED PILLS AND ADMINISTERED IN PUDDING. PT AWAKE AND TOLERATED WELL. DRANK THICKENED JUICE WITH MIRALAX. OT IN ROOM TO WORK WITH PT.
--- NOTE | 2019-02-26 10:01 | NUR ---
SPOKE WITH DAUGHTER MISSAEL AND SON ALFRED IN REGARDS TO PLAN FOR CARE CONFERENCE THIS AFTERNOON, MISSAEL SAID THAT HER AND KAREN (GRANDAUGHTER AND PRINTED CIRCUIT BOARD PANELS DEVELOPER) ARE AVAILABLE AT 1530. CARE STAFF IN HOSPITAL WITH BE NOTIFIED.
--- NOTE | 2019-02-26 12:14 | NUR ---
PT SITTING UP IN CHAIR AND BENDER MACHINE VIVI MAKING HER BED. UNABLE TO REMEMBER BIRTHDAY. ATE MOST OF LUNCH. NOT TAKING MUCH IN LIQUIDS.
--- NOTE | 2019-02-26 15:13 | NUR ---
PT GETTING PRN NEB FOR SOB. RR 26. ADMINISTERED TYLENOL FOR REPORTED LEG PAIN WHILE SHOWERING. DAUGHTER IN ROOM.
--- NOTE | 2019-02-26 15:58 | NUR ---
CARE CONFERENCE COMPLETE, WITH MISSAEL AND LAFRED YANG OF PT. , BA LICENSED INSURANCE SALES AGENT, JAMA AND STUDENT FROM PHYSICAL THERAPY, JUANCHO R.T., ALL IN ROOM FOR CARE CONFERENCE TO DISCUSS CURRENT PT STATUS AND CARE PLAN FOR ONGOING CARE TO DISCHARGE AND HOME.
--- NOTE | 2019-02-26 16:00 | NUR ---
CARE CONFERENCE PATIENT, DAUGHTER GAYLA AND SON ALFRED (POA) KRISSYF, DR ESPARZA, ALDAIR MUNOZ RN, JUANCHO RT, JAMA PT, WILFREDO PT STUDENT. DR ESPARZA DISCUSSED PATIENTS DIAGNOSIS, PROGRESS, MEDICATIONS. PT DISCUSSED PROGRESS THAT SHE IS BARELY ABLE TO TRANSFER WITH FEW STEPS USING FWW TO CHAIR AND IS VERY SOB. RT DISCUSSED THAT PATIENT SATURATIONS ARE VERY STABLE ON 2LNC, SHE IS GETTING NEBS NEEDED BUT MOST NOISE COMING FROM UPPER AIRWAY. DISCHARGE PLAN: PATIENT TO RETURN HOME PER FAMILY AND HER WISHES. SON ALFRED IS POA, DAUGHTER MISSAEL IS RN AND HELPS WITH MEDICAL DECISIONS. PATIENT HAS DEMENTIA, BUT IS VERY PLEASANT. SHE DID NOT ASK QUESTIONS. THEY HAVE A NEBULIZER, OXYGEN AND CPAP (HASN'T BEEN USING IT IT AGGITATES HER), AND WALKER, AND WHEELCHAIR AT HOME. THEY HAVE HER SET UP IN LIVING ROOM, NO STAIRS. DR ESPARZA DISCUSSED THAT DUE TO HER WORSENING DEMENTIA AND CHRONIC ASPIRATION ISSUES, THIS IS PROBABLY GOOD SHE WILL GET HERE AND IF THEY WANT TO TAKE HER HOME SHE SUGGESTS HOSPICE. BOTH DAUGHTER AND SON AGREE THEY ARE READY TO DISCUSS THIS AND REQUEST A CONSULT. DISCUSSED WITH THEM THAT [facility] COVERS THIS AREA. THEY ARE FINE WITH THIS. ALL QUESTIONS ANSWERED. WILL CONSULT HOSPICE TOMORROW.
--- NOTE | 2019-02-26 17:30 | NUR ---
PT SHOWERED TODAY. HOYERED TO SHOWER CHAIR. DID STAND WITH 3P ASSIST WITH PHYSICAL THERAPY. LARGE BM. CARE CONFERNCE RESULTED IN HOSPICE CONSULT FOR TOMORROW.
--- NOTE | 2019-02-26 19:46 | NUR ---
REPORT RECEIVED FROM DAY SHIFT RN. PT LYING IN BED WITH EYES CLOSED, NAD. O2 2L/NC IN PLACE. CALL LIGHT WITHIN REACH.
--- NOTE | 2019-02-26 21:09 | NUR ---
VETERINARY TECHNOLOGIST ROUNDING NOTE. PT'S GRANDAUGHTER PAINTING HER FINGERNAILS. PT'S GRANDAUGHTER ASKS ABOUT HYDRATION AND IV FLUIDS. QUESTIONS ANSWERED. PT REPOSITIONED AND PROPPED WITH PILLOWS. PT AND GRANDDAUGHTER DENY FURTHER NEEDS. CALL LIGHT IN REACH. ROOM IN VIEW OF RN STATION. WHITE BOARD UPDATED.
--- NOTE | 2019-02-26 21:38 | NUR ---
Pt was checked for incontience and she was clean. Pt was repositioned, VS and I&Os were taken. Fresh water was given
--- NOTE | 2019-02-26 21:50 | NUR ---
EVENING ASSESSMENT COMPLETE. PT IN BED, DROWSY. FAMILY AT BEDSIDE. EVENING MEDS GIVEN WITHOUT ISSUE, CRUSHED WITH PUDDING AND THICK LIQ. NO ASPIRATION OR SWALLOWING ISSUES NOTED. PRN TYLENOL GIVEN PER FAMILY REQUEST FOR PT DISCOMFORT. SS INSULIN GIVEN PER ORDER. HOB ELEVATED AFTER FOOD AND DRINK. OREILLY PATENT. O2 2L/NC IN PLACE. PT AND FAMILY DENIES FURTHER NEEDS AT THIS TIME. CALL LIGHT WITHIN REACH.
--- NOTE | 2019-02-27 00:20 | NUR ---
PT RESTING IN BED WITH EYES CLOSED, NAD. REPOSITIONED WITH PILLOWS. CALL LIGHT IN REACH.
--- NOTE | 2019-02-27 01:44 | NUR ---
PATIENTS GRANDDAUGHTER CAME OUT TO RNS STATION AND NOTIFIED STAFF THAT HER GRANDMA WAS SHORT OF BREATH. PATIENTS ATTEND CHANGED PATIENT HAD BM. PATIENT REPOSITIONED IN BED. RT IN ROOM TO ADMINISTER PRN NEB. SORENARY RN IS PRESENT IN THE ROOM.
--- NOTE | 2019-02-27 02:32 | NUR ---
PT WITH INCREASED SOB UNRELIEVED BY NEB TX. RR 28, EXPIRATORY WHEEZES NOTED. CALLED. NEW ORDERS RECEIVED, VERIFIED WITH READ BACK METHOD.
--- NOTE | 2019-02-27 02:45 | NUR ---
IV STARTED BY NURSING MANAGER OF ADMINISTRATION. LASIX AND MORPHINE GIVEN PER MD ORDER. PT WITH CONTINUED SOB AND INCREASED WORK OF BREATHING. O2 88-94% 3L OXYMASK. HR IN THE 110-120'S. RR 28-30. HOB ELEVATED.
--- NOTE | 2019-02-27 03:11 | NUR ---
BP TAKEN MANUALLY.
--- NOTE | 2019-02-27 03:11 | NUR ---
ELECTRIFICATION ADVISER NOTIFIED RE V/S.
--- NOTE | 2019-02-27 03:17 | NUR ---
PT CONT TO STRUGGLE TO BREATHE, ACCESSORY MUSCLE USE NOTED. RR 30'S, PULSE 110'S. BP 180/100, SPO2 88-94% ON 3L OXY MASK. EXPIRATORY WHEEZE NOTED ON ASSESSMENT. DR. ESPARZA NOTIFIED. NO NEW ORDERS REC'D AT THIS TIME. WILL CONT TO MONITOR AND ASSESS.
--- NOTE | 2019-02-27 03:54 | NUR ---
PT APPEARS SOMEWHAT MORE COMFORTABLE AT THIS TIME. RR 22, HR 106, SPO2 96 ON 3L OXYMASK. FAMILY ASLEEP ON COUCH. PT VISIBLE FROM NURSES STATION.
--- NOTE | 2019-02-27 06:05 | NUR ---
PATIENTS VITALS TAKEN AND RECORDED. PATIENTS OREILLY EMPTIED. PATIENT IS VERY DROWSY. PATIENT UNABLE TO SAFELY TAKE MORNING MEDICATIONS. MORNING MEDICATIONS HELD. GRANDDAUGHTER IS ASLEEP ON THE COUCH. PATIENT REMAINS ON 3L VIA OXYMASK. CALL LIGHT IN REACH.
--- NOTE | 2019-02-27 06:11 | NUR ---
PT WITH INCREASED SOB AND WORK OF BREATHING LAST NOC. NEW ORDERS RECEIVED FROM MD. PT DROWSY THIS AM. RESPIRATIONS CONTINUE TO BE LABORED. OREILLY PATENT. MORNING MEDS HELD. OXYMASK AT 3L, O2 96%. BP AND HR ELEVATED, MD AWARE. FAMILY ASLEEP IN ROOM.
--- NOTE | 2019-02-27 07:33 | NUR ---
PT LYING IN BED WITH HOB ELEVATED. APPEARS TO BE SLEEPING SOUNDLY, RESP EVEN AND UNLABORED. OXY MASK IN PLACE AT 3L O2, SATTING 98%, CONT PULSE OX IN [place]. GRANDAUGHTER AT BEDSIDE. PT VISIBLE FROM NURSES STATION.
--- NOTE | 2019-02-27 09:20 | NUR ---
PT APPEARS TO BE SLEEPING. OPENS EYES TO GENTLE TOUCH. CLOSES THEM QUICKLY, DOES NOT RESPOND VERBALLY AT THIS TIME. WILL LET PT CONT TO SLEEP. DR. ESPARZA AWARE.
--- NOTE | 2019-02-27 09:30 | NUR ---
Pt. sleeping. Called and spoke with Jaren, daughter. She would like a Hospice consult. Would like to use [facility]. Called and left a message with teaching manager. Requested they call me.
--- NOTE | 2019-02-27 11:04 | NUR ---
PT SAT UP AT 90 DEGREE ANGLE. MORE ALERT NOW ALTHOUGH CONT TO BE UNABLE TO ANSWER QUESTIONS. ONLY SMILES AT THIS TIME. ATE LUNCH WITH ASSISTANCE, ABIMAEL WELL. NO COUGHING OR CHOKING NOTED. 2L NC IN PLACE, PT SATTING 97%.
--- NOTE | 2019-02-27 13:58 | NUR ---
Notified by RN pt is having difficulty breathing. Updated I have a call into Hospice, but have not had a return call. I spoke with daughter this am and they are willing to take the pt home with comfort care. Called and spoke with Hospice, Kalyani. She states it will take a moment for her schedule to load. She will call me back when she has a time she can see the pt.
--- NOTE | 2019-02-27 14:20 | NUR ---
PT BREATHING BECAME MORE LABORED AFTER MOVING HER IN BED. ELEVATED BP. PT MEDICATED WITH TYLENOL AND PRN BLOOD PRESSURE MEDICATION. OXY MASK IN PLACE AT 2L, SATTING 97%.
== END 2019-02-27 15:14 | disposition swing bed (61) | DRG 682 ==
LOC: ED 19:51 → MS 23:14
PROVIDERS: ADMIT Student in an Organized Health Care Education/Training Program
DX: N17.9 Acute kidney failure, unspecified (principal); G93.41 Metabolic encephalopathy; J69.0 Pneumonitis due to inhalation of food and vomit; F03.90 Unspecified dementia, unspecified severity, without behavioral disturbance, psychotic disturbance, mood disturbance, and anxiety; E78.5 Hyperlipidemia, unspecified; J44.9 Chronic obstructive pulmonary disease, unspecified; I12.9 Hypertensive chronic kidney disease with stage 1 through stage 4 chronic kidney disease, or unspecified chronic kidney disease; E11.22 Type 2 diabetes mellitus with diabetic chronic kidney disease; I27.20 Pulmonary hypertension, unspecified; I35.0 Nonrheumatic aortic (valve) stenosis; N18.9 Chronic kidney disease, unspecified; E03.9 Hypothyroidism, unspecified; R26.81 Unsteadiness on feet; G89.4 Chronic pain syndrome; Z66 Do not resuscitate; Z51.5 Encounter for palliative care; Z79.82 Long term (current) use of aspirin; Z87.440 Personal history of urinary (tract) infections; Z88.8 Allergy status to other drugs, medicaments and biological substances; Z88.1 Allergy status to other antibiotic agents; Z79.4 Long term (current) use of insulin; Z79.51 Long term (current) use of inhaled steroids; Z79.899 Other long term (current) drug therapy
CPT/HCPCS: 36415; 51701; 71045; 76770; 80048; 80053; 81001; 82570; 82803; 83605; 83735; 83880; 84300; 84443; 84484; 85025; 90662; 92610; 93005; 93010; 94640; 94760; 94799; 97110; 97163; 97167; 97530; 97535; 99285-25; G0480; J0696; J1650; J1815; J1940; J2270; J2405; J3475; J7030; J7121

== ENCOUNTER 2019-02-27 15:14 | Inpatient (IN) | payer MEDICARE, OTHER ==
[~2019-02-27] VITALS: Ht 152.4 cm; Wt 63.2 kg
[~2019-02-27 15:14] MED LIST changes: +LIPITOR80 MG PO; +NITROFURANTOIN100 M1 PO; +ZESTRIL20 MG PO
== END 2019-02-28 11:50 | disposition hospice, home (50) | DRG 640 ==
LOC: MS 15:14
PROVIDERS: ADMIT Internal Medicine
DX: R62.7 Adult failure to thrive (principal); G93.41 Metabolic encephalopathy; R26.81 Unsteadiness on feet; F03.90 Unspecified dementia, unspecified severity, without behavioral disturbance, psychotic disturbance, mood disturbance, and anxiety; E78.5 Hyperlipidemia, unspecified; J44.9 Chronic obstructive pulmonary disease, unspecified; E11.9 Type 2 diabetes mellitus without complications; I27.20 Pulmonary hypertension, unspecified; I35.0 Nonrheumatic aortic (valve) stenosis; R13.10 Dysphagia, unspecified; E03.9 Hypothyroidism, unspecified; G89.4 Chronic pain syndrome; Z74.01 Bed confinement status; Z87.440 Personal history of urinary (tract) infections; Z66 Do not resuscitate; Z51.5 Encounter for palliative care; Z87.891 Personal history of nicotine dependence; Z88.1 Allergy status to other antibiotic agents; Z88.8 Allergy status to other drugs, medicaments and biological substances; Z79.899 Other long term (current) drug therapy